=== PATIENT | male | born 1960 | race Caucasian/White ===

== ENCOUNTER 2019-02-10 14:11 | Inpatient (IN) | payer MEDICARE, MEDICAID ==
--- NOTE | 2019-02-10 14:33 | ED ---
Lower Extremity - HPI Summary HPI Summary: Patient is a 58-year-old male with a significant past medical history of insulin-dependent type 2 diabetes, coronary bypass, non-MRI safe defibrillator placement who presents to the emergency department today with a chief complaint of worsening diabetic ulcers on his bilateral feet. He states 2 months ago he was seeming [place] when these ulcers first began developing and he was given IV antibiotics for 4 days and then given by mouth and Valtrex for 2 weeks. He states his symptoms improved significantly but recently in the last 2 days the ulcers have been getting worse. He states he has a 8 out of 10 pain which is made worse when he walks in both feet for which she has been taking 7.5 mg of hydrocodone with 325 mg of acetaminophen daily. He states his feet has been progressively becoming more swollen, red and draining a foul- smelling liquid. He states he has had good glycemic control recently and he decided to come in to the emergency department today because he started feeling chills. He denies chest pain, abdominal pain, pain with urination, noncompliance with medication, records from drug use, alcohol abuse. 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 Negative: Fever, Knee Pain Aggravating Factor(s): Standing, Ambulation, Movement, Weight Bearing, Stairs Alleviating Factor(s): Rest, Other - Hydrocodone Able to Bear Weight: Yes - Allergies/Home Medications Allergies/Adverse Reactions: Allergies Allergy/AdvReac Type Severity Reaction Status Date / Time ibuprofen [From Motrin] Allergy Altered Verified 02/10/19 14:18 Mental Status Home Medications: Home Medications Aspirin EC TAB* [Ecotrin EC TAB*] 325 mg PO DAILY 02/10/19 [History Confirmed ] Canagliflozin (NF) [Invokana (NF)] 100 mg PO DAILY 02/10/19 [History Confirmed 02/10/19] Clopidogrel TAB* [Plavix TAB*] 75 mg PO DAILY 02/10/19 [History Confirmed ] Hydrocodone/Acetaminophen [[place] 7.5-325 Tablet] 1 each PO DAILY PRN 02/10/19 [ History Confirmed 02/10/19] Insulin GLARGINE(*) [Lantus(*)] 50 units SUBCUT QPM 02/10/19 [History Confirmed 02/10/19] Rosuvastatin Calcium 40 mg PO QPM 02/10/19 [History Confirmed 02/10/19] Sotalol TAB* [Betapace 80 MG TAB*] 80 mg PO QPM 02/10/19 [History Confirmed ] glipiZIDE TAB* [Glucotrol TAB*] 10 mg PO BID 02/10/19 [History Confirmed ] PMH/Surg Hx/FS Hx/Imm Hx Infectious Disease History: No Infectious Disease History: Denies: Traveled Outside the [place] in Last 30 Days Review of Systems Constitutional: Negative Cardiovascular: Negative Respiratory: Negative Gastrointestinal: Negative Positive: Other - erythema and edema to the left lower extremity Neurological: Negative Psychological: Normal All Other Systems Reviewed And Are Negative: Yes Physical Exam Triage Information Reviewed: Yes Vital Signs On Initial Exam: Initial Vitals Temp Pulse Resp BP Pulse Ox 97.9 F 87 20 151/92 97 02/10/19 14:12 02/10/19 14:12 02/10/19 14:12 02/10/19 14:12 02/10/19 14:12 Vital Signs Reviewed: Yes Appearance: Positive: Well-Appearing, No Pain Distress, Well-Nourished, Obese Skin: Positive: Warm, Skin Color Reflects Adequate Perfusion, Weeping Skin/ Lesions - On the plantar aspect at the MTP joints of both feet bilaterally, Erythema @ - Plantar aspect of the MTP joint of both feet, Other - His right foot has a 2 cm circumferential unstageable ulcer on the plantar surface near the MTP joint. He has minimal redness and swelling to the right foot. He has full range of motion and full strength of the right foot. He is noticed a mild amount of discharge from his foot. Left foot has a 2-1/2 circumferential unstageable ulcer on the plantar surface near the MTP joint which is draining foul-smelling discharge. There is significant edema and erythema noted to the left foot to the plantar and dorsal aspect which continues up the distal left lower extremity. The skin is warm to the touch. There is 3+ pitting edema on the left foot. Head/Face: Positive: Normal Head/Face Inspection Eyes: Positive: EOMI, FAUSTINA ENT: Positive: Hearing grossly normal Respiratory/Lung Sounds: Positive: Breath Sounds Present Cardiovascular: Positive: RRR, S1, S2 Abdomen Description: Positive: Nontender Bowel Sounds: Positive: Present Musculoskeletal: Positive: Strength/ROM Intact, Pain @ - Left foot, Edema Left - Left foot Neurological: Positive: Sensory/Motor Intact, Alert, Oriented to Person Place, Time, Other - Antalgic gait is noted Psychiatric: Positive: Normal AVPU Assessment: Alert Procedures - Sedation Patient Received Moderate/Deep Sedation with Procedure: No Diagnostics - Vital Signs Vital Signs Temp Pulse Resp BP Pulse Ox 02/10/19 14:12 97.9 F 87 20 151/92 97 - Laboratory Result Diagrams: 02/10/19 14:57 02/10/19 14:57 Lab Statement: Any lab studies that have been ordered have been reviewed, and results considered in the medical decision making process. Lower Extremity Course/Dx - Course Course Of Treatment: Patient was evaluated in the emergency department today due to a worsening ulcer on his left foot. The patient was seen and examined. There is great suspicion for osteomyelitis of his left foot due to an underlying unstageable ulcer to the plantar surface. His vital signs show no evidence of sepsis or febrile illness. Laboratory studies and an x-ray of the left foot was obtained. CBC revealed significant leukocytosis with a white blood cell count of 20 with a left shift of 14.1 neutrophils. There is no evidence of anemia. His chemistry panel revealed hyperglycemia with blood glucose of 242 as well as a CRP of 228. His corrected sodium is normal and he has no other electrolyte abnormalities. 3 view x-ray of the left foot showed a fracture at the proximal end of the proximal phalanx of the second digit however it showed no abnormal lucency or lytic areas. Due to the high suspicion of possible myelitis wound culture was obtained as well as blood cultures. He was given 300 mg IV clindamycin and Dr. Tinsley the orthopedist was consulted. He suggested getting broad-spectrum antibiotics and admitting him for further testing such as an MRI. as per the orthopedist suggestion, he was given 2 g of IV cefepime and 1500 mg of IV vancomycin in the emergency department. It should be known this patient states he has a defibrillator which is not MRI safe. Dr. Whatley the seedling sorter was consulted for admission of this patient at 1700. The patient was informed of these proceedings and agrees with the plan. - Diagnoses Differential Diagnosis/HQI/PQRI: Positive: Cellulitis, Osteomyelitis, Septic Arthritis Provider Diagnoses: Pain in left foot - Physician Notifications Discussed Care Of Patient With: Rob Tinsley - and Dr. whatley Instructed by Provider To: Admit As Inpatient Admit/Transition Orders Completed By ED Provider: No Discharge ED - Sign-Out/Discharge Documenting (check all that apply): Patient Departure - Discharge Plan Condition: Stable Disposition: ADMITTED TO [facility] Referrals: Mario Thomas PA [Primary Care Provider] - - Billing Disposition and Condition Condition: STABLE Disposition: Admitted to [facility]
[2019-02-10 15:05] LABS: ABS Basophils 0.2 10^3/ul (0-0.2); ABS Eosinophils 0.3 10^3/ul (0-0.6); ABS Lymphocytes 3.9 10^3/ul (1.0-4.8); ABS Monocytes 1.5 10^3/ul (0-0.8); ABS Neutrophils 14.1 10^3/ul (1.5-7.7); Eosinophil % 1.3 %; Hematocrit 45 % (42-52); Hemoglobin 15.2 g/dL (14.0-18.0); Lymphocyte % 19.7 %; Mean Corpuscular HGB Conc 34 g/dL (31-36); Mean Corpuscular Hemoglobin 29 pg (27-31); Mean Corpuscular Volume 86 fL (80-94); Mean Platelet Volume 7.9 fL (7.4-10.4); Platelet Count 307 10^3/uL (150-450); Red Cell Distribution Width 14 % (10-15)
[2019-02-10 15:26] LABS: Albumin 3.9 g/dL (3.2-5.2); Albumin/Globulin Ratio 1.1 (1-3); BUN/Creatinine Ratio 18.8 (8-20); C Reactive Protein 228.33 mg/L (<8.01); Calcium 9.8 mg/dL (8.6-10.3); Globulin 3.7 g/dL (2-4); Potassium 3.9 mmol/L (3.5-5.0); Total Bilirubin 0.8 mg/dL (0.2-1.0); Total Protein 7.6 g/dL (6.4-8.9)
[2019-02-10] MEDS ORDERED: Vancomycin(*) 1,500 MG in NS 0.9% 250 ML* 250 ML IVPB ONE (16:55)
[2019-02-10 16:57] LABS: Erythrocyte Sed Rate 72 mm/Hr (0-19)
[2019-02-10] MEDS ORDERED: Cefepime 2 GM in Dextrose(*) 2 GM/50 ML BAG IV ONE (17:00)
[2019-02-10] MEDS ORDERED: Nicotine PATCH 14 MG/24 HR* PATCH TRANSDERM ONE (17:09)
[2019-02-10] MEDS ORDERED: oxyCODONE/Acetamin 5/325 MG* TAB PO PRN (17:45)
[2019-02-10] MEDS ORDERED: NS 0.9% 1000 ML** 1,000 ML IV SCH (17:45)
[2019-02-10] MEDS ORDERED: Morphine INJ* 2 MG/ML 1 ML SYRINGE (TWO MG - NEW SYRINGE VERSION) IV PRN (17:45)
[2019-02-10] MEDS ORDERED: Acetaminophen TAB* 325 MG PO PRN (17:45)
[2019-02-10] MEDS ORDERED: Vancomycin(*) 1,000 MG in NS 0.9% 250 ML* 250 ML IVPB ONE (17:50)
[2019-02-10] MEDS ORDERED: Dextrose 50% VIAL 50 ml IV PUSH PRN (17:51)
[2019-02-10] MEDS ORDERED: Vancomycin per Pharmacy* NOTE FOLLOW UP SCH (18:00)
[2019-02-10] MEDS ORDERED: Insulin GLARGINE(*) 1 UNITS UNIT SUBCUT SCH (18:00)
[2019-02-10] MEDS ORDERED: Nicotine* 4MG (FRUIT FLAVOR) GUM PO PRN (18:10)
[2019-02-10] MEDS ORDERED: NS 0.9% 250 ML* 250 ML ONE (18:26)
[2019-02-10] MEDS ORDERED: Nicotine PATCH 21 MG/24 HR* PATCH ONE (18:34)
[2019-02-10] MEDS: Nicotine PATCH 21 MG/24 HR* PATCH TRANSDERM SCH (18:35)
[2019-02-10] MEDS ORDERED: Sotalol TAB* 80 MG PO SCH (20:00)
[2019-02-10] MEDS ORDERED: Atorvastatin* 80 MG TAB PO SCH (20:00)
--- NOTE | 2019-02-10 20:20 | CONS ---
CONSULTATION NOTE: DATE OF CONSULT: 02/10/19 REASON FOR CONSULT: Infected bilateral feet. 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 The patient states that he had an AICD placed in 2007. Around that time, he was also diagnosed with diabetes mellitus type 2. The patient has taken insulin for some time. The patient tells me that his most recent A1c was 7.1 and this morning his blood glucose was 130. The patient does see a primary care physician regularly, at least yearly, and his last visit was 1 month ago. The patient reports some decreased sensation, but present sensation to bilateral feet, for multiple years. The patient states that approximately 6 months ago he developed calluses on the plantar aspect of bilateral feet and he points to the current locations which are plantar to the second toe MTP joint. Those calluses developed and then each cracked the skin, resulting in opening of the skin. The patient noticed some holes or craters in these calluses. The patient states that 3 months ago, in approximately October, the patient developed increased pain about bilateral feet, but left foot worse than right foot. The patient described a change in color of the second toe, left. The patient was admitted to [facility] and placed on IV antibiotics. The general surgery service there was consulted. The patient and his state that the general surgeon there first recommended some type of partial foot or ankle level amputation. He then changed a possible treatment solution to a toe amputation. The patient was uninterested in any amputation at that time. A bone biopsy was performed during that hospitalization. This was not done in the operating room. It seems as though this was done with some type of core needle, bedside or in a procedure room. The patient did not have surgery. Core needle demonstrated bone infection. I should ask exactly where that needle was placed, but I assume it was placed into the second toe. The patient was discharged home on oral antibiotics. The patient and his state that his foot, left, significantly improved so that it was similar to his right foot. Then, in the last few days, the patient developed an increase in pain and swelling and foot erythema, of the skin of that left foot. The patient describes no recent trauma, but states that multiple months ago he dropped something on his left foot. The patient and his noted some malodorous smell about the left foot. The patient had sweats this morning. No other fever or chills. PAST MEDICAL HISTORY: Myocardial infarction, diabetes mellitus, hypercholesterolemia. PAST SURGICAL HISTORY: Coronary artery bypass graft surgery, AICD implantation. MEDICATIONS: 1. Aspirin 325 mg p.o. daily. 2. Canagliflozin. 3. Clopidogrel. 4. Hydrocodone with acetaminophen p.r.n. 5. Insulin Lantus. 6. Rosuvastatin. 7. Sotalol. 8. Glipizide. ALLERGIES: IBUPROFEN (altered mental status). FAMILY HISTORY: Noncontributory. SOCIAL HISTORY: The patient presented to the emergency room with his aunt today. The patient's girlfriend has been dealing with a medical problem in her family. 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 REVIEW OF SYSTEMS: The patient had some sweats this morning. No fevers or chills. The patient has much pain in the left foot, only minimal pain in the right foot. Some swelling and erythema noted in the left foot. Otherwise, review of systems is negative. PHYSICAL EXAM: No acute distress, alert and oriented, appropriate mood and affect, appropriate dress and hygiene, well-coordinated bilateral upper and lower extremities. The patient has multiple missing teeth. Exam: Left foot exam reveals soft tissue swelling of the ankle and foot. There is erythema that is visible on the dorsal aspect of the forefoot and midfoot. Pulses, dorsalis pedis and tibialis are excellent, bounding. Sensation grossly intact to all toes. The patient has the most significant swelling about the second toe. There is some drainage about the medial aspect of the second toe. When I compress the toe, there is less tenderness than there should be. There is some drainage, which is either purulent or necrotic fat mixed with blood. That does cause pain. The swelling about the second toe is significant with some degree of compromise of skin and soft tissues medially. There is a callus about the plantar aspect of the foot superficial to the second toe MTP joint. There is a divot or crater in that callus. Difficult to say how deep that hole is. There is tenderness to palpation around it and it looks as if there has been drainage from it at some point, although currently no active drainage. Right foot exam reveals no significant soft tissue swelling. There is also a callus present superficial to the plantar aspect of the second toe MTP joint. There is a crater in the callus. There is only mild tenderness to palpation and no soft tissue swelling about that callus. Vital signs are temperature 98 degrees Fahrenheit, pulse 89, blood pressure 114/ 67, respiratory rate 16, and O2 saturation 97% on room air. DIAGNOSTIC STUDIES/LAB DATA: Labs show a white blood cell count of 20.0 with a neutrophil percentage of 70.7%. Creatinine 0.8. Glucose 242. CRP is 228. Imaging: Foot x-rays, bilateral, obtained in the emergency room were reviewed. These show a fracture of the left second toe proximal phalanx. It is about the base of the proximal phalanx. No other clear bony cortical erosions or fractures. That lucency about the base of the proximal phalanx could represent osteomyelitis. Possible changes in the bone of the head of the second metatarsal. The left medial malleolus also appears to have some calcifications adjacent to this. This could be an os off the navicular bone and x-rays of the ankle would be more helpful to suss this out. ASSESSMENT: 1. Infection, left second toe with likely abscess, likely osteomyelitis, acute- on- chronic. 2. Bilateral feet calluses with ulceration superficial to the plantar aspect of the second toe metatarsophalangeal joints. 3. Diabetic with some degree of chronic peripheral neuropathy without routine skin care, foot care. PLAN: 1. Given the drainage and the malodor, the patient certainly has an infection of the left second toe which, because of the purulence, will need more than IV antibiotics, some type of surgical procedure. 2. Spoke to the patient and his aunt about surgical options including incision and drainage or second toe amputation. Given the patient's brisk pulses, there is a decent likelihood I would suspect of healing, although much of the skin about the left second toe may already be compromised. 3. I would recommend an MRI scan of bilateral feet, if this was feasible, to look for infected bone or soft tissue collections. However, the patient is unable to have an MRI because of his defibrillator. 4. Therefore, I would recommend a CT scan of bilateral feet with IV contrast to evaluate for infection of left second toe, abscess, and/or osteomyelitis, along with to look for any osteomyelitis about the right second toe MTP joint. 5. In case we can do a procedure tomorrow, please make this patient n.p.o. after midnight. 6. Surgical procedure depending on the patient's status and operating room availability would be either on 02/11/19, or 02/12/19. 7. Recommend broad-spectrum IV antibiotics. 8. Daily dressing change. 9. N.p.o. after midnight just in case the patient can go to surgery tomorrow, 02/11/19. [id number]/[facility] #: [id number] VAL
[2019-02-10] MEDS: Insulin LISPRO* 1 UNITS UNIT SUBCUT SCH (20:28)
[2019-02-10] MEDS: Docusate CAP* 100 MG PO SCH (20:32)
[2019-02-10] MEDS: Senna TAB 8.6 mg* TAB PO SCH (20:40)
--- NOTE | 2019-02-10 21:52 | HP ---
CC: ONEYDA Baum; Dr. Tinsley * HISTORY AND PHYSICAL: DATE OF ADMISSION: 02/10/19 PRIMARY CARE PROVIDER: ONEYDA Baum. MANAGER [employer] SCIENCES: The physician of cardiology group from [facility] in [place], specifically Dr. Neil Cazares. CHIEF COMPLAINT: Left foot swelling. HISTORY OF PRESENT ILLNESS: Óscar Hahn is a 58-year-old male with a history of diabetes and coronary artery disease, who was diagnosed of an infection of the bone of the left foot in [facility] in October of 2017. The patient stated that he was offered a toe amputation or partial foot amputation, but he refused. He was placed on 2 weeks of intravenous antibiotics. He stated that he had a biopsy of the bone of the foot at that point at [facility] and diagnosed with "bone infection." He after the IV antibiotics he stated that the redness resolved and he felt better until a couple of days ago when this foot swelled up again and he had chills in the morning. He came in to our hospital for evaluation. Here, he has a weeping up of wound that is rather small, approximately 1 cm in diameter, tunnel like, on the bottom of the foot and between the toes of number 3 and 4. The entire left foot is swollen and foul smelling. He likely will have osteomyelitis. Dr. Tinsley was consulted by the ED department and will see the patient in the morning. PAST MEDICAL HISTORY: 1. History of coronary artery disease, status post coronary artery bypass grafting in 2007, with residual cardiomyopathy and EF of 40%. The patient stated that he was diagnosed with congestive heart failure in the past, but currently he is not taking any diuretics. 2. History of atrial fibrillation, on sotalol. 3. History of EF of 40%. 4. Status post ICD and pacemaker placement. 5. History of diabetes, type 2. ALLERGIES: IBUPROFEN, caused per the patient to be "in a coma for 3 days." FAMILY HISTORY: Both of the parents of lung cancer; father at the age of 77 and mother at the age of 64. SOCIAL HISTORY: The patient smokes 1 pack per day and he started smoking when he was 15 years old. He denies any alcohol or drug use. His closest next-of- kin is his aunt, Alyce Caban, whose phone number is [phone]. REVIEW OF SYSTEMS: Please see history of present illness. All the remaining 12 systems were reviewed with the patient and were otherwise negative. PHYSICAL EXAMINATION GENERAL: The patient is a very pleasant 58-year-old male, who is in no acute distress. Alert, awake, and oriented x3. VITAL SIGNS: Blood pressure of 151/92, heart rate of 87 and regular, respiratory rate 20, oxygen saturation 97% on room air, temperature of 97.9. HEENT: Head atraumatic, normocephalic. Eyes: Pupils are equal, reactive to light and accommodation. Oropharynx clear. Mucosa moist. NECK: Supple. No JVD, no bruits bilaterally. RESPIRATORY: Clear to auscultation bilaterally. CARDIOVASCULAR: Regular rate and rhythm. No murmur. ABDOMEN: Soft, nontender. Bowel sounds are present in all 4 quadrants. EXTREMITIES: There is a rather large left foot edema with erythema surrounding the entire bottom and dorsum of the left foot. Pulses are +2 bilaterally. There is no clubbing or cyanosis. PSYCHIATRIC: Oriented x3 with no evidence of anxiety or depression. SKIN: On evaluation of the skin, please note that there is erythema surrounding most of the entire left foot. There is an ulceration on the bottom of the patient's foot in between toes 3 and 4 that is tunnel like, approximately 1 cm orifice opening, unstageable, deep foul smelling with purulent discharge present. On the bottom of right foot, the patient has an eschar-covered ulceration that is also unstageable, approximately 2 cm in diameter. DIAGNOSTIC STUDIES/LAB DATA: White blood cell count was 20.0, hemoglobin of 15.2, hematocrit of 45, and platelets of 307. ESR was 72. Sodium 133, potassium of 3.9, chloride 99, carbon dioxide 26, BUN 15, creatinine 0.80. Liver function tests were unremarkable. C-reactive protein was 228. Glucose was 242. EKG shows sinus rhythm with heart rate of 84 beats per minute with multiple ventricular premature complexes and LVH with secondary repolarization abnormality noted. There was no old EKG available for comparison. Foot x-ray, impression: "Suggestion of fracture at the end of the proximal phalanx of the second digit." ASSESSMENT AND PLAN: 1. The patient is going to be admitted to the hospital with the diagnosis of likely osteomyelitis of the left foot. Although his CRP is markedly elevated and he has marked elevation of white blood cell count of 20,000, he had not been afebrile and he does not meet SIRS or sepsis criteria at this point. He is going to be continued on cefepime and vancomycin that was started in the emergency department. Dr. Tinsley will see the patient in consultation in the morning. Unfortunately, due to the patient's history of pacemaker and implantable cardioverter-defibrillator placement, he is unable to have an MRI obtained. At this point, I will obtain medical records from [facility], but I believe that he just needs surgical intervention. Unfortunately, we do not have the patient's recent cardiac evaluations or cardiac reports. I will get an echocardiogram as well as medical records from the patient's cardiology group, but he may require cardiology clearance for operative intervention. 2. In regards to the patient's history of atrial fibrillation, sotalol is going to be continued. Due to frequent premature ventricular contractions on the EKG, he is going to be placed on telemetry monitored bed. An echocardiogram is going to be obtained. 3. For his smoking cessation, the patient was consulted to quit. He is going to be placed on nicotine supplementation with patch and gum. 4. For his history of heart disease, currently he is asymptomatic and he stated that he had been asymptomatic ever since his bypass and he is seeing his manager drug on a yearly basis. Due to possibility of surgical intervention, his tablets are going to be discontinued. I will continue his aspirin only. 5. For his diabetes, the patient is going to be placed on insulin sliding scale and lower dose of glargine. Glipizide is going to be held. 6. For DVT prophylaxis, the patient is going to be placed on heparin subcutaneously. 7. The patient's code status is full. His surrogate is his aunt. TIME SPENT: Approximately, 75 minutes was spent on the admission of this patient, more than half that time was spent [id number] with the patient during the interview and physical exam. [id number]/[facility] #: [id number] MTDD
[2019-02-10] MEDS ORDERED: Heparin VIAL(*) 5000 UNITS/ML VIAL (FIVE THOUSAND) SUBCUT SCH (22:00)
[2019-02-11 06:24] LABS: ABS Basophils 0.1 10^3/ul (0-0.2); ABS Eosinophils 0.4 10^3/ul (0-0.6); ABS Lymphocytes 3.5 10^3/ul (1.0-4.8); ABS Monocytes 1.2 10^3/ul (0-0.8); ABS Neutrophils 9.2 10^3/ul (1.5-7.7); Eosinophil % 2.5 %; Hematocrit 43 % (42-52); Hemoglobin 14.5 g/dL (14.0-18.0); Lymphocyte % 24.4 %; Mean Corpuscular HGB Conc 34 g/dL (31-36); Mean Corpuscular Hemoglobin 29 pg (27-31); Mean Corpuscular Volume 86 fL (80-94); Mean Platelet Volume 8.6 fL (7.4-10.4); Platelet Count 260 10^3/uL (150-450); Red Blood Count 4.99 10^6 /uL (4.18-5.48); Red Cell Distribution Width 14 % (10-15); White Blood Count 14.4 10^3/uL (3.5-10.8)
[2019-02-11 06:43] LABS: BUN/Creatinine Ratio 21.3 (8-20); Calcium 8.9 mg/dL (8.6-10.3); EGFR African American 130.4 (>60); EGFR Non-African American 107.7 (>60)
[2019-02-11] MEDS ORDERED: Iodixanol* (CONTRAST) 320 MG/ML 100 ML SDV IV ONE (08:38)
[2019-02-11] MEDS: Nicotine PATCH 21 MG/24 HR* PATCH TRANSDERM SCH (08:38)
[2019-02-11] MEDS: Senna TAB 8.6 mg* TAB PO SCH (08:38)
[2019-02-11] MEDS: Docusate CAP* 100 MG PO SCH ×2 (08:38→08:46)
[2019-02-11] MEDS: Insulin LISPRO* 1 UNITS UNIT SUBCUT SCH ×2 (08:38→12:48)
[2019-02-11] MEDS ORDERED: Cefepime 1 GM in Dextrose(*) 1 GM/50 ML BAG IV SCH (09:00)
[2019-02-11] MEDS ORDERED: Aspirin EC TAB* 325 MG PO SCH (09:00)
[2019-02-11] MEDS ORDERED: Perflutren Lipid Microsphere* 3 ML VIAL ONE (09:51)
--- NOTE | 2019-02-11 11:24 | ECHO ---
*[facility]* [place] [address] Fax #: [phone] Transthoracic Echocardiogram Patient: Óscar Hahn : 1960 Study Date: 02/11/2019 Age: 58 Gender: M HR: 70 bpm Height: 74 in /188 cm BSA: 2.33 m^2 Weight: 234.5 lb /106.6 kg BMI: 30.2 kg/m^2 *Partition Assembler: * Zonia Sanchez [facility] *Referring Physician: * Amarilis Bolivar *Reading Physician: * Julio César Ken MD Indications: Abnormal EKG. Congestive Heart Failure. History: Atrial fibrillation. Coronary artery disease. Congestive heart failure. Risk factors: Current tobacco use. Diabetes mellitus. Labs, prior tests, procedures, and surgery: ICD system implantation (June 2013). Currently implanted device: Foxfly ([id number]). Coronary artery bypass grafting. Conclusions Summary: - Left ventricle: The cavity size is moderately dilated. Wall thickness is mildly increased. Systolic function is severely reduced. The estimated ejection fraction is 10-15%. Severe diffuse hypokinesis. Cannot exclude an apical thrombus. - Ventricular septum: There is septal flattening of the interventricular septum consistent with RV volume or pressure overload. - Left atrium: The atrium is mildly to moderately dilated. - Mitral valve: There is trace to mild regurgitation. - Aortic valve: The findings are consistent with mild stenosis. Severity of aortic stenosis could be more given severe cariomyopathy. - Aortic root: The aortic root is mildly dilated. - No previous echocardiogram available. Study data: Transthoracic echocardiogram. Procedure: Transthoracic echocardiography was performed. Image quality was suboptimal. The study was technically limited due to body habitus. Intravenous Definity , 5 mlswas administered. Complete 2D, spectral Doppler, and color flow Doppler. Location: Bedside. Patient status: Inpatient. Patient room number: 420-01. Rhythm: Paced rhythm. Findings Left ventricle: The cavity size is moderately dilated. Wall thickness is mildly increased. Systolic function is severely reduced. The estimated ejection fraction is 10-15%. Severe diffuse hypokinesis. Cannot exclude an apical thrombus. There is a possible 2.3 cm (W), apical inferior thrombus. Best seen on images 100, 103, and 109. Regional wall motion abnormalities: Hypokinesis of the inferolateral and inferior myocardium. Hypokinesis of the basalinferoseptal myocardium. Doppler parameters are consistent with a reversible restrictive pattern, indicative of decreased left ventricular diastolic compliance and/or increased left atrial pressure (grade 3 diastolic dysfunction). Right ventricle: The cavity size is moderately dilated. Pacer wire noted in the right ventricle. Systolic function is low normal. Ventricular septum: There is septal flattening of the interventricular septum consistent with RV volume or pressure overload. There is abnormal interventricular septal wall motion consistent with an RV pacemaker. Left atrium: The atrium is mildly to moderately dilated. Right atrium: The atrium is at the upper limits of normal in size. Pacer wire noted in right atrium. Mitral valve: The leaflets are mildly thickened. There is no evidence of stenosis. There is trace to mild regurgitation. Aortic valve: The valve is trileaflet. The leaflets are mildly calcified. Valve mobility is mildly restricted. The findings are consistent with mild stenosis. There is trace regurgitation. Tricuspid valve: The leaflets are normal thickness. There is no evidence of stenosis. There is trace regurgitation. Pulmonic valve: The leaflets are normal thickness. There is no evidence of stenosis. There is trace regurgitation. Aorta: Aortic root: The aortic root is mildly dilated. Ascending aorta: The ascending aorta is upper normal in size. Aortic arch: The aortic arch is poorly visualized. Pericardium: There is no significant pericardial effusion. Pulmonary arteries: The main pulmonary artery is normal-sized. Systolic pressure can not be accurately estimated. Systemic veins: Inferior vena cava: The vessel is dilated. There is (>= 50%) respiratory change in the IVC dimension. Measurements Left ventricle Value Ref Right atrium Value Ref AARON, LAX (H) 7.0 cm 4.2 - 5.8 SI dim, ES 5.3 cm 3.4 - 5.3 ESD, LAX (H) 6.3 cm 2.5 - 4.0 ML dim, ES, A4C 4.3 cm 2.6 - 4.4 FS, LAX (L) 9 % 25 - 43 SI dim, ES, A4C 5.3 cm 3.4 - 5.3 PW, ED, LAX (H) 1.2 cm 0.6 - 1.0 Estimated RAP 8 mm Hg --------- FS (L) 9 % 25 - 43 PW, ED (H) 1.2 cm 0.6 - 1.0 Aortic valve Value Ref E', lat sam, TDI 14.0 cm/sec >=10.0 Sam diam, ED 2.4 cm --- ------ E/e', lat sam, 6 Peak v, S 1.8 m/sec ------ --- TDI VTI, S 36.0 cm --------- E', med sam, TDI 8.7 cm/sec >=7.0 Mean grad, S 7.0 mm Hg --- ------ E/e', med sam, 10 Peak grad, S 13.0 mm Hg ------ --- TDI LVOT/AV, VTI ratio 0.36 --------- E', avg, TDI 11.4 cm/sec BELINDA, VTI 1.37 cm^2 ------ --- E/e', avg, TDI 8 <=14 BELINDA, Vmax 1.47 cm^2 --- ------ LVOT Value Ref Mitral valve Value Ref Diam, S 2.20 cm Peak E 0.91 m/sec --------- Area 3.8 cm^2 Peak A 0.5 m/sec --------- Peak beverly, S 0.7 m/sec Decel time 134 ms --------- VTI, S 13.0 cm Peak grad, D 3.3 mm Hg --------- Peak grad, S 2 mm Hg Peak E/A ratio 1.8 --------- Mean grad, S 1 mm Hg SV 51 ml Pulmonic valve Value Ref SV/bsa 22 ml/m^2 Peak v, S 0.81 m/sec --------- Peak grad, S 3.0 mm Hg --------- Ventricular septum Value Ref IVS, ED (H) 1.2 cm 0.6 - 1.0 Aortic root Value Ref Root diam 3.8 cm <4.4 Right ventricle Value Ref AARON, LAX 4.1 cm Ascending aorta Value Ref AARON minor ax, (H) 5.0 cm 1.9 - 3.5 AAo AP diam, S 3.6 cm --------- A4C mid Decending aorta Value Ref Left atrium Value Ref Marianna peak beverly 0.57 m/sec --------- AP dim, ES (H) 4.50 cm 3.00 - 4.00 Inferior vena cava Value Ref ML dim, A4C 4.6 cm Diam 2.4 cm --------- SI dim, A4C 5.5 cm Vol/bsa, ES, 1-p 28 ml/m^2 12 - 37 A4C Vol/bsa, ES, A/L (H) 41 ml/m^2 16 - 34 Legend: (L) and (H) daniel values outside specified reference range. Prepared and electronically signed by Julio César Ken MD 02/11/2019 11:24
[2019-02-11] MEDS ORDERED: Heparin DRIP 25,000 UNITS(*) 25,000 UNITS/500 ML BAG IV SCH (12:00)
[2019-02-11] MEDS ORDERED: Heparin VIAL(*) 5000 UNITS/ML VIAL (FIVE THOUSAND) IV SCH (13:00)
[2019-02-11 13:13] LABS: ABS Basophils 0.1 10^3/ul (0-0.2); ABS Eosinophils 0.4 10^3/ul (0-0.6); ABS Lymphocytes 2.9 10^3/ul (1.0-4.8); ABS Monocytes 1.1 10^3/ul (0-0.8); ABS Neutrophils 10.7 10^3/ul (1.5-7.7); Eosinophil % 2.4 %; Hematocrit 44 % (42-52); Hemoglobin 14.7 g/dL (14.0-18.0); Lymphocyte % 19.1 %; Mean Corpuscular HGB Conc 33 g/dL (31-36); Mean Corpuscular Hemoglobin 29 pg (27-31); Mean Corpuscular Volume 87 fL (80-94); Mean Platelet Volume 8.2 fL (7.4-10.4); Nucleated Red Blood Cells % 0.1; Platelet Count 293 10^3/uL (150-450); Red Blood Count 5.11 10^6 /uL (4.18-5.48); Red Cell Distribution Width 14 % (10-15); White Blood Count 15.1 10^3/uL (3.5-10.8)
[2019-02-11 13:28] LABS: EGFR African American 143.5 (>60); EGFR Non-African American 118.6 (>60)
[2019-02-11] MEDS ORDERED: Heparin VIAL(*) 5000 UNITS/ML VIAL (FIVE THOUSAND) SUBCUT SCH (14:00)
[2019-02-11 14:19] LABS: Troponin I 0.03 ng/mL (<0.04)
--- NOTE | 2019-02-11 16:03 | TRS ---
AMENDED REPORT NOW INCLUDES DESIGNATED COSIGNER - ESIGNED BEFORE ADJUSTMENTS CC: ONEYDA Baum; Dr. Tinsley; Dr. Ken * DATE OF ADMISSION: 02/10/2019. DATE OF TRANSFER: 02/11/2019. The patient will be transferred to [facility] with Dr. Trevino as the accepting physician. PROVIDER: Kj Morales NP. ATTENDING PHYSICIAN: Dr. Bolivar * (dictated by Kj Morales NP). PRIMARY CARE PROVIDER: ONEYDA Baum. PRIMARY DIAGNOSES: 1. Ischemic cardiomyopathy with an ejection fraction of 10-15% percent with possible apical thrombosis. 2. Osteomyelitis of the left foot. SECONDARY DIAGNOSES: 1. Atrial fibrillation, status post ICD and pacemaker placement. 2. History of diabetes type 2. PROCEDURE: TTE showed an ejection fraction of 10 to 15 percent, left ventricle cavity size moderately dilated with left ventricular hypertrophy, systolic function severely reduced, septal flattening of the intraventricular septum, left atrium is mild to moderately dilated, mitral valve shows trace to mild regurgitation and aortic valve mild stenosis, aortic root mildly dilated. IMAGING STUDIES: 1. Foot x-ray: Suggested fracture at the proximal end of the proximal phalanx of the second digit. 2. Bilateral lower extremity CT scan: Shows soft tissue ulcer anterior aspect right foot with surrounding soft tissue inflammatory change without evidence for loculated soft tissue plane abscess collection or associated osteomyelitis within limits of CT. Soft tissue ulcer plantar aspect of left foot with surrounding soft tissue inflammatory change without evidence for loculated soft tissue plane abscess collection. Nondisplaced fracture at the head of the left second metatarsal is likely pathologic secondary to osteomyelitis with erosion and sclerosis along the plantar margin of the head of the metatarsal, reference the sagittal reformatted series. PERTINENT LAB DATA: White blood cell count 15.1, absolute neutrophils 10.7, absolute monocytes 1.1, ESR 72; BUN/creatinine ratio 21.3, glucose 179, AST 12, C- reactive protein 228.33, awaiting troponin result at the time of this dictation. HISTORY OF PRESENT ILLNESS/HOSPITAL COURSE: This is a 58-year-old male with a past medical history significant for coronary artery disease, status post coronary artery bypass grafting in 2007 with a history of A-fib, ICD and pacemaker placement, and type 2 diabetes who came to the emergency room on 02/10 with left foot swelling. Originally the patient was diagnosed with an infection of the bone of the left foot in [facility] in October of 2018 and stated he was offered a toe amputation, a partial foot amputation at that time though declined and was placed on two weeks of IV antibiotics and had a biopsy of the bone. At that point, he was diagnosed with a "bone infection." After the IV antibiotics, he stated the redness has resolved until about a couple of days prior to his admission where his foot began to swell up again and had chills. Noted at that the wound on his left foot was weeping. The wound was approximately 1 cm in diameter and tunnel- like at the bottom of his foot between toes three and four. The entire left foot is swollen, sort of dusky in appearance with cap refill within three seconds and foul smelling. Unable to perform an MRI to confirm diagnosis of osteomyelitis due to the fact that he has a pacer implanted. However, CT scan of the bilateral lower extremities confirm the suspicion of likely osteomyelitis in the left foot. Today, the patient was undergoing cardiac clearance with pacer interrogation which revealed no observations based on the current interrogation. The patient also underwent a transthoracic echocardiogram which revealed a significant reduction in his ejection fraction. Previously known ejection fraction was 40 percent around the time of his coronary artery bypass graft in 2007, though current studies reveal that it is 10 to 15 percent with possible apical thrombus. What is also interesting is the fact that the patient has been on both full strength aspirin and Plavix since the bypass in 2007 and with no other apparent reason for him being on the Plavix, so Plavix was held during his stay here. After discovering that the patient had a possible thrombus, he was placed on a Heparin drip. The patient looks remarkably well despite the functioning of his heart. He has good coloring. He is awake and mentating well. He denies any chest pain, shortness of breath, palpitations, abdominal pain, nausea, vomiting, any issues moving bowel or bladder. Does not get easily fatigued with walking to the bathroom. However, due to the high risk nature of his cardiac status, we are unable to perform a chemical stress test or any other ischemic evaluation in this facility which is why we are requesting a transfer to [facility] for more specialized cardiac care in order to assist in clearing the patient for the needed left foot amputation. REVIEW OF SYSTEMS: An 11 point system review was performed and was negative again for chest pain, shortness of breath, nausea, vomiting, bowel or bladder issues. The patient states that he feels "fine." PHYSICAL EXAMINATION: General: This is a well-developed gentleman seen resting in bed, no acute distress noted. Coloring is pink per his normal. Vital Signs: Temperature 97.6 Fahrenheit, 73 pulse, 18 respiratory, 100 percent oxygen on room air, 116/73 blood pressure. HEENT: Eyes: Conjunctivae pink and moist. PERRLA. EOM's intact. Mucus membranes moist. Oropharynx clear. Neck: Supple. No evidence of JVD. Cardiac: S1, S2 present. Heart rate regular. No murmurs, gallops, or rubs appreciated. Respiratory: Lung sounds clear throughout bilaterally on room air. Abdomen: Soft, nontender, nondistended, positive bowel sounds times four. Musculoskeletal: 5/5 strength in bilateral upper and lower extremities. No clubbing or cyanosis of the digits. Cap refill within three seconds. Skin: Dressing is in place to bilateral lower extremities due to wounds on the plantar surface of both feet. The second toe on the left foot is deep red, purple in color. Dressing: Both dressings are clean, dry, and intact. Neurological: Decreased sensation to bilateral feet. No other focal deficits appreciated. Psych: Alert and oriented times four, slightly anxious. Thought content organized. CURRENT MEDICATIONS: 1. Acetaminophen 650 mg p.o. q.4 hours prn. 2. Atorvastatin 80 mg p.o. q.p.m. 3. Cefepime 1 gm IV q.12 hours. 4. Docusate 100 mg p.o. b.i.d. 5. Heparin drip at 1,600 units an hour. 6. Insulin Glargine 40 units subcu q.24 hours. 7. Insulin Lispro per sliding scale a.c., at bedtime. 8. Morphine Sulfate 2 mg IV q.4 hours prn. 9. Nicotine patch 21 mg transdermally daily. 10. Nicotine gum 4 mg p.o. q.2 hours prn. 11. Percocet 5/325 one tab p.o. q.4 hours prn. 12. Senna one tab p.o. b.i.d. 13. Sotalol 80 mg p.o. q.p.m. CONDITION ON TRANSFER: Guarded. DISPOSITION: Transfer to a higher level of care at [facility]. TIME SPENT: Over 60 minutes with 30 of that spent [id number]. KJ MORALES, PIPE BUFFER [id number]/[facility] #: [id number] VAL
[2019-02-11 17:30] VITALS: BP 125/65
--- NOTE | 2019-02-12 10:49 | CONS ---
CONSULTATION REPORT: DATE OF CONSULT: 02/11/19 ATTENDING PHYSICIAN: Dr. Ken, Cardiology.* (DICTATED BY DOMENICO COLE NP ) PRIMARY CARE PHYSICIAN: ONEYDA Baum PRIMARY MIXER PIGMENT: Historically, [facility] with Dr. Rivera. CHIEF COMPLAINT: Left foot pain and swelling. HISTORY OF PRESENT ILLNESS: This is a pleasant 58-year-old male patient with an extensive cardiac history, historically treated at [facility] due to an anterior wall RI in 2004 that resulted in PTCA/stenting to LAD; ischemic cardiomyopathy, LVEF less than 30%; triple-vessel coronary artery disease, underwent bypass x3 on 09/13/07. At that time, he underwent mid LAD, single saphenous vein graft to PDA, and sequential vein graft to obtuse marginal; V- fib arrest postop with long QTc, now with pacemaker defibrillator in situ; reported paroxysmal AFib, on sotalol and aspirin therapy, however, upon review of outpatient cardiology reports, there is no mention of AFib. It is possible he is on sotalol for a prior V-fib arrest. I personally spoke with [facility], who states that the last time the patient was seen in 2015. He was since released from their practice due to lack of compliance with followup. The patient states he has been in his usual state of health up until about 6 months ago when he started to notice a nonhealing ulceration involving his left lower extremity. In October 2017, he was evaluated at [facility] where he was prescribed antibiotics and per patient, a biopsy was obtained. He states the wound was improving, but never completely healed. He adds that the last MARIN that he had was several years ago. He has not had a repeat MARIN since. Apparently, he was in his usual state of health up until about 2 days ago when he started to notice acute onset left foot swelling with erythema involving his toe. He states that he was supposed to be evaluated next Thursday in the wound clinic. He opted for evaluation at [facility] due to progressive swelling and pain. He was ultimately diagnosed with infection of left second toe with likely abscess, osteomyelitis according to Dr. Rob Tinsley's consultation. Cardiology has been asked to see the patient in consultation for preoperative risk stratification. The patient denies chest pain. He states he remains active through employment. 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 In addition, he has a 6-month-old Rottweiler puppy that he cares for. He denies exertional chest pain, shortness of breath, dizziness, syncope. Denies ever having device output. He states historically he had the anginal equivalent stabbing chest pain, which he has not had since his coronary artery bypass in 2007. He reports medication compliance. Of note, he is still on dual-antiplatelet therapy, unclear as to why given last intervention was in 2007. He denies history of TIA or CVA. Last echocardiogram according to [facility] was in 2016. Per report, LVEF 20% to 25%, moderate left atrial dilatation, moderate left ventricle dilatation, mild left ventricular hypertrophy. There was mild degenerative changes involving the aortic valve. His mitral, tricuspid , and pulmonic valves were all essentially normal. There was no aortic ascending aneurysm seen. Last ischemic evaluation according to outpatient cardiology notes with left heart catheterization prior to bypass in 2007. PAST MEDICAL HISTORY: 1. Anterior wall RI in 2004. 2. Ischemic cardiomyopathy. 3. Coronary artery disease. 4. Remote bypass in 2007 x3. 5. V-fib arrest postop with long QTc interval. 6. Diabetes. 7. COPD. 8. Ongoing tobacco abuse. 9. Pacemaker defibrillator in situ. 10. Paroxysmal AFib. 11. Hyperlipidemia. PAST SURGICAL HISTORY: Includes: 1. CABG x3 per outpatient medical records, GÓMEZ to LAD, single saphenous vein graft to PDA, sequential vein graft to OM. 2. Remote PTCA stenting to LAD in 2004. 3. Single chamber pacemaker defibrillator with generator change in 2014, initial implant was in 2007. HOME MEDICATIONS: Per admission med rec. ALLERGIES: Reported as MOTRIN, which apparently caused the patient to go into a coma. FAMILY HISTORY: Mother from complications from lung cancer at the age of 54. Father at the age of 67. SOCIAL HISTORY: The patient is single, lives home alone. 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 Denies drug use. Drinks alcohol socially. Smokes 1 pack per day for the past 30 plus years. REVIEW OF SYSTEMS: All systems have been reviewed and otherwise negative as mentioned in the HPI. PHYSICAL EXAM: Temperature is 97.6, pulse 75, respirations 20, oxygenation 97% on room air, blood pressure 114/70. General: The patient is lying in bed. Echocardiogram was just completed, appears in no apparent distress. He is cooperative, alert and oriented x3. HEENT: Head is atraumatic, normocephalic. Oral mucosa is moist. Tongue is midline. Neck: Supple, trachea midline. No JVD. No carotid bruit. Cardiac: Normal S1, S2. Regular rate and rhythm. No murmurs, rubs or gallops noted. Lungs: Auscultated anteriorly, no evidence of adventitious breath sounds. Respirations are nonlabored. /GI: Abdomen is soft, nontender, nondistended hyperactive bowel sounds x4. No hepatomegaly to palpation. Extremities: Bilateral feet are wrapped in Kerlix. I did unwrap the right lower extremity. There is a strong 3+ dorsalis pedis pulse palpated. There is an ulceration noted on his foot. I did not unwrap the left lower extremity. Wounds, reported bilateral foot ulcers. DIAGNOSTIC STUDIES/LAB DATA: Blood work was reviewed. White count 14.4, hemoglobin 14.5, hematocrit 43, platelets 260. Sodium 137, potassium 4, chloride 106, carbon dioxide 24, BUN 16, creatinine 0.75, glucose 179. CRP 228. Skin and soft tissue culture is S. aureus positive, MRSA negative. Blood cultures pending. ECG from 02/10/19, revealed sinus rhythm, rate 84 with frequent ventricular ectopy, QTc 470 with intraventricular conduction delay. Echocardiogram pending. Device interrogation pending. ASSESSMENT AND PLAN: 1. Left lower extremity nonhealing ulceration with osteomyelitis. Wound cultures are Staphylococcus aureus positive. Methicillin-resistant Staphylococcus aureus negative. Blood cultures pending. Dr. Tinsley and primary team managing. 2. Preoperative risk stratification for left lower extremity nonhealing ulceration with osteomyelitis. The patient has a history of anterior wall myocardial infarction in 2004. At that time, he underwent PCI/stenting to LAD. He had triple- vessel disease and underwent bypass x3 in 2007. He has not had an ischemic evaluation since then. He has a notable history of severe LV dysfunction, last assessment was in 2016. At that time, EF was 20% to 25%. He has has not been noncompliant with followup. He denies chest pain or anginal equivalent. At this current time, we will await echocardiogram and make further recommendation. We will have device interrogated as well. 3. Reported history of paroxysmal atrial fibrillation, on sotalol therapy. However, upon review of outpatient cardiology note, there is no mention or documentation of atrial fibrillation. He did have prior ventricular fibrillation arrest, which would be likely reason as to why he is on sotalol therapy. His QTc is 417. Recommend keeping K greater than 4, mag greater than 2. 4. History of ischemic cardiomyopathy. LVEF 20% to 25% per echocardiogram in 2016. He has a single-chamber pacemaker defibrillator in situ. He appears compensated on physical examination. He is not on any guideline driven medical therapy such as RAVI inhibitor, ARB, Entresto, Aldactone, metoprolol/Coreg. The patient has not wanted to follow up with his surgery technician. He was released from the care due to lack of compliance and followup. This should be addressed prior to discharge. 5. History of ventricular fibrillation arrest postop with long QTc per outpatient medical records. Has single chamber pacemaker defibrillator in situ. Denies any history of output. 6. Disposition. Pending course. We will await echocardiogram and make further recommendations in addition to device interrogation. Thank you for this kind consultation. If you have any future questions or concerns, please do not hesitate to contact our practice. Dr. Ken agrees with the above assessment and plan. DOMENICO COLE NP [id number]/[facility] #: [id number] 02.14.2019 5:24 pm: pt seen and examined. d/w MARINA Cole. Known CAD and RI. Recent echo [facility] EF 10% severely reduced and can not r/o clote in LV apex. High risk based on LV EF and comorbidities. If surgery to proceed , I recommend at a higher tertiary center. Pt was seen and f/u at [facility] before. VAL
== END 2019-02-11 16:30 | disposition short-term general hospital (02) | DRG 638 ==
LOC: ED 14:11 → MED 17:45
PROVIDERS: ADMIT Internal Medicine; ATTEND Internal Medicine
DX: E11.69 Type 2 diabetes mellitus with other specified complication (principal); M86.9 Osteomyelitis, unspecified; E11.42 Type 2 diabetes mellitus with diabetic polyneuropathy; E78.00 Pure hypercholesterolemia, unspecified; L84 Corns and callosities; E11.621 Type 2 diabetes mellitus with foot ulcer; L97.529 Non-pressure chronic ulcer of other part of left foot with unspecified severity; I25.5 Ischemic cardiomyopathy; I25.10 Atherosclerotic heart disease of native coronary artery without angina pectoris; I48.0 Paroxysmal atrial fibrillation; J44.9 Chronic obstructive pulmonary disease, unspecified; E78.5 Hyperlipidemia, unspecified; F17.210 Nicotine dependence, cigarettes, uncomplicated; I51.3 Intracardiac thrombosis, not elsewhere classified; I08.0 Rheumatic disorders of both mitral and aortic valves; Z95.810 Presence of automatic (implantable) cardiac defibrillator; Z95.1 Presence of aortocoronary bypass graft; I25.2 Old myocardial infarction; Z88.6 Allergy status to analgesic agent; Z95.5 Presence of coronary angioplasty implant and graft; Z72.89 Other problems related to lifestyle; Z79.4 Long term (current) use of insulin; Z79.899 Other long term (current) drug therapy
CPT/HCPCS: 36415; 80048; 80053; 82565; 83605; 84484; 84520; 85025; 85652; 85730; 86140; 87040; 87070; 87077; 87186; 87205; 87640; 87641; 93005; 93306; 96365; 96375; 99282; A9270-GY; C8929; J0692; J1644; J3370; Q9967